=== PATIENT | female | born 2000 | race Caucasian/White ===

== ENCOUNTER → 2019-08-19 10:46 | Outpatient (CLI) | payer OTHER, SELFPAY ==
[2019-08-19 15:55] LABS: Chlamydia Trachomatis by PCR Negative (Negative); Neisserai gonorrhoeae by PCR Negative (Negative); Probe Check PASS; Sample Adequacy Control PASS; Specimen Processing Control PASS
== END ==
PROVIDERS: Referring Provider Obstetrics & Gynecology; Visit Provider Obstetrics & Gynecology
DX: Z11.3 Encounter for screening for infections with a predominantly sexual mode of transmission (principal)
CPT/HCPCS: 87491; 87591

== ENCOUNTER → 2019-08-24 11:05 | Outpatient (CLI) | payer OTHER, SELFPAY ==
[2019-08-24 13:55] LABS: Absolute Lymphocyte Count 1.24 X10^3/uL (0.83-4.51); Absolute Neutrophil Count 5.8 X10^3/uL (2.0-7.7); Basophil# 0.02 X10^3/uL; Basophil% 0.3 % (0-1); Eosinophil# 0.03 X10^3/uL; Eosinophils% 0.4 % (0-5); Hematocrit 43.6 % (37-47); Hemoglobin 14.7 g/dL (12.0-15.0); Lymphocyte # 1.24 X10^3/ul (4.0); Mean Corp Hgb Conc 33.7 g/dL (32-36); Mean Corpuscular Hgb 29.8 pg (27.0-32.0); Mean Corpuscular Volume 88.4 fL (81-99); Monocyte# 0.63 X10^3/uL; Monocyte% 8.1 % (0-10); NRBC Flagged by Analyzer 0 % (0-5); Neutrophil # 5.79 X10^3/uL (2.7-7.7); Neutrophil % 74.8 % (47-70); Platelet Count 178 K/mm3 (150-450); RBC Distribution Width CV 12.6 % (11.6-14.6); Red Blood Count 4.93 M/mm3 (4.2-5.4); White Blood Count 7.7 K/mm3 (4.4-11.0)
[2019-08-24 14:07] LABS: Color, Urine Yellow (Yellow); Glucose, Dipstick Normal (Normal); Ketone-Dipstick 5 mg/dl (Negative); Leukocyte Esterase-Dipstick 500 /ul (Negative); Nitrite-Dipstick Negative (Negative); Occult Blood-Urine 10 /ul (Negative); Protein-Dipstick 15 mg/dl (Negative); Urine Bilirubin Dipstick Negative (Negative); Urine Clarity Cloudy (Clear); Urine Urobilinogen Normal (Normal)
[2019-08-24 14:11] LABS: Amphetamine Urine VISTA NEGATIVE (<1000 ng/mL); Barbiturate Urine VISTA NEGATIVE (< 200 ng/mL); Benzodiazepine Urine VISTA NEGATIVE (< 200 ng/mL); Cocaine Urine VISTA NEGATIVE (< 300 ng/mL); Ecstacy Urine VISTA NEGATIVE (< 500 ng/mL); Methadone Urine VISTA NEGATIVE (< 300 ng/mL); PCP Urine VISTA NEGATIVE (< 25 ng/mL); THC Urine VISTA NEGATIVE (< 50 ng/mL); Vista UDS pH Range 6
[2019-08-24 14:13] LABS: Thyroid Stim Hormone (TSH) 2.13 uIU/mL (0.358-3.74)
[2019-08-24 14:57] LABS: HIV - WCH Non-Reactive (Nonreactive); Hepatitis B Surface Antigen Non-Reactive (Nonreactive); Hepatitis C Antibody Non-Reactive (Nonreactive); Rubella IgG 88.8 IU/mL; Vitamin D,25 Hydroxy 18.7 ng/mL (29.95-100.01)
[2019-08-27 01:54] LABS: Prenatal RPR NONREACTIVE (NONREACTIVE)
== END ==
PROVIDERS: Visit Provider Obstetrics & Gynecology
DX: Z34.81 Encounter for supervision of other normal pregnancy, first trimester (principal)
CPT/HCPCS: 36415; 80307; 81002; 82306; 84443; 85025; 86703; 86762; 86803; 87340

== ENCOUNTER → 2020-02-15 | Outpatient (CLI) | payer OTHER, SELFPAY | END | disposition home or self-care (01) | LOC: LABSPEC 14:03 | PROVIDERS: Referring Provider Obstetrics & Gynecology; Visit Provider Obstetrics & Gynecology | DX: Z36.85 Encounter for antenatal screening for Streptococcus B (principal) | CPT/HCPCS: 87077; 87081; 87186 ==

== ENCOUNTER 2020-03-15 07:03 | Inpatient (IN) | payer OTHER, SELFPAY ==
[2020-03-15] VITALS (43 sets, daily range): BP systolic 74–134; BP diastolic 36–91; PULSE 78–110; RESP 20; TEMP 36.6–37.7; O2SAT 92–100; BMI 32.8
--- NOTE | 2020-03-15 07:22 | HP.PCM_ITS ---
History and Physical Date of Admission: 03/15/20 [facility] ANTEPARTUM RECORD - HISTORY AND PHYSICAL (03/15/2020) Name: ODILON WALLACE History of This : This is a 20-year-old 1 para 0 who presents for induction for -induced hypertension and postdatism. care has otherwise been uneventful. OB Physician: IRVIN [place]'s Physician: UNDECIDED ...................................................................... : 2000 Age: 20 Address: [address] [place] [address] Phone: (h) [phone] ([phone] Insurance Carrier: [employer] [id number] Emergency Contact: IRINEO WALLACE [phone] ...................................................................... Final LINDA: 03/10/20 By Ultrasound: PARITY: (G-Total Pregnancies P-Fullterm,Premature,Induced AB,Spont AB, Ectopics, Multiple,Living) LINDA CONFIRMATION: By LMP: 06/03/19 Final LINDA: 03/10/20 OB PROBLEM LIST: Please enc office Childbirth/ classes. ALLERGY TO SULFA Declines AFP and CF. Echogenic focus noted at 20 wk u/s; declines MFM referral; repeat u/s 24 weeks GBS+ 02/22/20 ALLERGIES: Sulfa (Sulfonamide Antibiotics) Hives and/or rash MEDICATIONS: 28 mg iron-800 mcg tablet One pill by mouth once a day pyridoxine (vitamin B6) 50 mg tablet One pill by mouth once a day prn SOCIAL HISTORY: Smoking - Never Alcohol Use - None Diet - caffeine < 2 drinks per day and Low dairy-doesn't drink any milk. Water intake- tries for 20+ oz daily. Lifestyle - moderate stress lifestyle and Exercise - Active at home. Employer - [employer] in the home Job Description - Illicit Drug Use - None Sexual Activity - Residence - rent home and Lives w Place of - [place] Hours Worked - 20 WK Spouse-Sig Other Name - Irineo Spouse-Sig Other Occupation - Construction Spouse-Sig Other Phone No - [phone] PRIOR DELIVERY HISTORY DEL DATE GEST LAB WT LB WT OZ TYPE ANES LABOR TX ANTEPARTUM FLOW CHART VISIT GE RTC FU F F NY U U DATE WK MD WKS HT PN HR M SS BP ED WT NY GL D EF ST __ ____ ___ __ __ ___ __ __ __ ___ __ __ __ ___ __ 28 Apr 40 JMW 6 37 V + + 134/90 sl 169 tr - 3 75 -2 Feb 39 JMW 1 38 V + + 128/78 sl 170 tr - S 14 Feb JMW 1 38 V + + 126/70 sl 169 tr - 2 50 -2 07 Feb 37 JMW 1 37 + + 132/70 sl 167 tr - 31 Jan 36 JMW 1 36 V + + 128/70 sl 166 tr - 1 50 -2 10 Jan JMW 2 33 + + 114/76 sl 160 tr - Dec JMW 2 31 + + 114/64 sl 161 tr - 04 Jan 14 JMW 3 28 + + 112/64 0 155 tr - 02 Dec 09 JMW 4 24 + + 122/90 0 146 - - 04 Nov 04 JMW 4 20 + + 128/70 0 135 tr - 05 Oct 01 JMW 4 15 + ? 116/58 0 131 tr - 08 Aug 27 ELB 4 - - U+ O 100/72 0 129 tr - ANTEPARTUM NOTE(S): Mar 14 2020: see progress note, induce for PIH Mar 07 2020: Ctxs-occas Feb 28 2020: Ctxs-mild, Good FM Feb 21 2020: Ctxs-mild, Good FM Feb 14 2020: GBS Today and LARC form signed Jan 24 2020: Doing Well Jan 11 2020: Doing Well Dec 21 2020: CBC,OGCT today,Feeling Well Nov 18 2020: see note, Glucola Given and US OK Oct 20 2019: Sono Today,Periodic Tachycardia Sep 21 2019: N/V Periodically, Questionable Quickening,Declines AFP,CF Aug 24 2019: NOB today, feeling well COMPREHENSIVE ANTEPARTUM NOTE(S): Mar 14 2020: Odilon presents for her PNV. She is reporting good FM. She has sl to 1+ pitting edema in her lower extremities. Pt sts she had a BRADFORD yesterday which is unusual for her. On 03/09 she noted some ctxs, and sts at one point in the afternoon she had an episode of feeling as tho she would pass out. Pt is open to discussing induction. Initial BP sitting Lt arm was elevated at 134/90, but repeat BP Lying Lt side is 100/52. JT Mar 14 2020: Odilon scheduled for Induction for 03/15/20 at 0700 and to call at 0500 to confirm. Questions answered and consents signed. Spoke with Cherie DIGGS JD RN Feb 22 2020: H taken to OB. tkg Nov 18 2019: Odilon is being seen for PNV. Pt complains of becoming lightheaded easily. Glucola given. AM Nov 18 2019: Odilon presents here today for Sono and PNV and reports having bright red vaginal discharge when wiping after using restroom yesterday. Denies intercourse and straining with bowel movement. Nothing since that one time. Sono clear today with no evidence of bleeding. Glucola/Instructions given today. Good FM. JUAN MANUEL Aug 24 2019: Dr Burroughs patient here for NOB sono, NOB nurse and PNV. FIrst . Cultures at last visit NEG and sono: gardner viable IUP noted. EB Aug 24 2019: Odilon is here for NOB nurse visit with LINDA 03-10-20 planning a vag del at [facility] preferably without an epidural, is unsure of ped care post discharge and does plan to breastfeed. 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 Her is Irineo who does construction. They were March 10, 2019 which is their LINDA. Odilon has an allergy to Sulfa causing hives, but no known allergies to food, latex or the environment. She's a lifetime non smoker, non drinker and denies street drug use. Her diet is fairly balanced except for milk and dairy intake w minimal caffeine and some water. Enc to increase water intake to as close to one gallon daily as poss. She is active w her home and babysitting job. Enc to walk daily 20 min although she feels she's too busy to do so. Genetic Screening form completed noting cousins w dev disability or autism. She declines CF and AFP. Warning signs in pg discussed as well as which OTC meds are ok to take, the importance of protein in her diet, wearing her seatbelt ALWAYS despite position in the vehicle and low on her abdomen. She states her was once in an accident without a seatbelt which saved his life by being thrown out of the car window. Advised this is the exception not the rule. Discussed baby has to be in a carseat, buckled securely and seatbelted into the vehicle. She agrees with this. She is aware how to reach the office after hours. US done today and labs drawn w Vit D level added. She's had chickenpox, they have no cats and she knows about litter box issues. They have a copy of What to Expect. OFFICE Childbirth and classes discussed and enc. Enc to call w any concerns. Visit took approx 50 min. Zakiya DIGGS Aug 20 2019: GC and chlamydia NEG. EB Aug 19 2019: Odilon presents here today for Missed Menses appointment. 19 y.o G 1 P 0 non-smoker with history of regular menses and LMP of 19 lasting her average of 5-6 days. UPT is positive today in our Office. Presents at 10 weeks 6 days with an approximate LINDA of 03-10-20. Denies spotting/bleeding thus far in . Currently taking an OTC Vitamin with Educational Materials given. Medication and Allergy lists up-dated. JUAN MANUEL Aug 19 2019: ok REVIEW OF SYSTEMS: GENERAL - Denies fever, or chills SKIN - Denies rash, new skin lesions, or change in moles EYES - Denies blurred vision, or change in visual acuity EARS - Denies ear pain, or difficulty hearing NOSE - Denies nasal congestion, discharge, or bleeding MOUTH - Denies sore throat, or difficulty swallowing NECK - Denies pain or swelling RESPIRATORY - Denies shortness of breath, cough, wheezing CARDIOVASCULAR - Denies palpitations, chest pain, orthopnea, PND, peripheral edema, syncope or claudication GASTROINTESTINAL - Denies nausea, vomiting, diarrhea, constipation, Denies a bdominal pain, melena and or bright red blood GENITOURINARY - Denies dysuria, frequency of urination, urgency, or hesitancy MUSCULOSKELETAL - Denies joint or muscle pain, or back pain NEUROLOGICAL - Denies localized numbness, weakness, or tingling PSYCHIATRIC - Denies depression, anxiety, substance abuse or suicide attempts ENDOCRINE - Denies heat or cold intolerance, weight loss or gain, increasing thirst HEMATO-IMMUNOLOGIC - Denies easy bruising, bleeding, oral ulcerations or recurrent infections GENETICS SCREENING: Age 35+ years: No Thalassemia: No Neural Tube Defect: No Down Syndrome: No JACOB-SACHS: No Sickle Cell Disease: No Hemophilia: No Musc. Dystrophy: No Cystic Fibrosis: No-declines screening [place] Chorea: No Mental Retardation: No Fragile X: No Other genetic: No Other defects: No SABs/still births: No Drugs since LMP: No INFECTION HISTORY: High risk AIDS: No High risk Hepatitis: No Exposed to TB: No Exposed to Herpes: No Rash/viral illness since LMP: No History of STD: No MENSTRUAL HISTORY: *Menses Amount/Duration: 5-6 DAYSMenses Regularity: RegularFrequency: monthlyMenarche (Age Onset): 10* PAST SUMMARY: PARITY: 1. Total Pregnancies............ 1 2. Full Term Pregnancies........ 0 3. Premature.................... 0 4. Abortions - Induced.......... 0 5. Abortions - Spontaneous...... 0 6. Ectopics..................... 0 7. Multiple Births.............. 0 8. Living Children.............. 0 PHYSICAL EXAMINATION General Appearence: 20 yo female in no acute distress Vital Signs: AF, VSS Heart: RRR without rubs or gallops Lungs: CTA x 2 Breasts: deferred Abdomen: gravid Pelvis: Cervix: 3+/75 Presentation: cephalic Station: -2 Fetus: Size: AGA Movement: present Heart: present Labs for : ODILON WALLACE since 06/14/2019 ORDER DATEIN DESCRIPTION VALUE UNITS RANGE A+ COMMENT CULTURE, GROUP B STREPTOCOCCUS 02/15/20 NOTE Original Ordering Provider: Koffi Burroughs Comments: VAGINAL/RECTAL SADAF Culture ORGANISM 1: Streptococcus agalactiae (B) Amount Growth 2+ Streptococcus agalactiae (B): REACTION Ampicillin $ <=0.25 S Benzylpenicillin NF <=0.06 S Ceftriaxone $ <=0.12 S Clindamycin $$ >=1 R Inducable Clindamycin Resistan NEG Linezolid $$$$ <=2 S Vancomycin $ 0.5 S Reference Range: S= Susceptible, I= Intermediate, R= Resistant MICS are expressed in micrograms per mL (NF) indicates non-formulary drug at [facility]. Approval by Infectious Disease Specialist required before non-formulary drugs may be ordered and/or dispensed. Testing performed on [employer] 2 instrument c Reviewed by ABIGAIL CBC + DIFF 12/21/19 NOTE Original Ordering Provider: KOFFI BURROUGHS CBC + DIFF CBC-COMPLETE BLOOD COUNT WBC 10.4 x 10EE3/UL 4.5 - 10.8 RBC 3.33 x 10EE6/UL 4.10 - 5.30 L HEMOGLOBIN 10.8 g/dl 12.0 - 16.0 L HEMATOCRIT 31.2 % 34.0 - 46.0 L MCV 94 fl 80 - 99 MCH 33 pg 27 - 33 MCHC 35 X10 3 32 - 36 RDW/CV 13.7 % 12.0 - 15.6 PLATELET 148 x10EE3/UL 150 - 450 L MPV 10.6 fl 6.6 - 10.5 H AUTOMATED DIFFERENTIAL NEUT % 80.8 % 46.0 - 76.0 H LYMPH % 11.5 % 20.0 - 45.0 L MONOS % 7.1 % 0.0 - 10.0 EO % 0.3 % 0.0 - 7.0 BASO % 0.3 % 0.0 - 2.0 LYMPH # 1.20 x10EE3/UL 0.80 - 2.80 NEUT # 8.40 x10EE3/UL 1.50 - 7.10 H MONO # 0.70 x10EE3/UL 0.20 - 1.00 EO # 0.00 x10EE3/UL 0.00 - 0.50 BASO # 0.00 x10EE3/UL 0.00 - 0.10 MANUAL DIFF SEE BELOW BANDS 3 % 0 - 5 SEGS 80 % 50 - 70 H LYMPH 9 % 20 - 40w L MONOS 6 % 0 - 8 META 1 % 0 - 1 MYELO 1 % CELL COUNT 100 MORPHOLOGY NORMAL Reviewed by KOFFI GLUCOSE CHALLENGE 50GM 1 HOUR 12/21/19 NOTE Original Ordering Provider: KOFFI BURROUGHS GLUCOSE CHALLENGE 50GM 1 HOUR GLUCOSE CHALLENGE 50 GMS 1 HOUR GLUCOSE 1HR 123 mg/dl 70 - 140 Reviewed by KOFFI RPR 08/24/19 NOTE Original Ordering Provider: Anel Mejia RPR NONREACTIVE NONREACTIVE Reviewed by ANEL HEPATITIS C ANTIBODY 08/24/19 NOTE Original Ordering Provider: Anel Mejia HEPATITIS C AB Non-Reactive Nonreactive Non Reactive: < 0.8 Equivocal: >/= 0.8 to < 1.0 Reactive: >/= 1.0 The CDC recommends that a reactive/equivocal HCV antibody result be followed up by the HCV Nucleic Acid Amplification test ([id number]) Reviewed by KOFFI HEPATITIS B SURFACE ANTIGEN 08/24/19 NOTE Original Ordering Provider: Anel Mejia HEPB SURFACE AG Non-Reactive Nonreactive Reviewed by KOFFI RUBELLA IGG 08/24/19 NOTE Original Ordering Provider: Anel Mejia RUBELLA IGG 88.8 IU/mL Antibody results Interpretation of Immune Status < 5 IU/ml Presumed Non-immune 5 - < 10 IU/ml Equivocal > or = 10 IU/ml Presumed Immune HIV - [facility] 08/24/19 NOTE Original Ordering Provider: Anel Mejia HIV - [facility] Non-Reactive Nonreactive Reviewed by KOFFI VITAMIN D,25 HYDROXY 08/24/19 NOTE Original Ordering Provider: Anel Mejia VITAMIN D 25-OH 18.7 ng/mL 29.95-100.01 L Vitamin D 25(OH) Status Range Deficiency <20 ng/mL (50nmol/L) Insufficiency 20 - 30 ng/mL (50 - 75 nmol/L) Sufficiency 30 - 100 ng/mL (75 - 250 nmol/L) Toxicity >100 ng/mL (>250 nmol/L) Reviewed by KOFFI CHRISTOPHER T AND S-NO CHARGE W/PNP 08/24/19 Reason for Type AND Screen/Red Cells: Surgery? N [facility]~[address] [place], [address]~ BLOOD TYPE GEL A POSITIVE N AB SCREEN GEL NEGATIVE N Reviewed by KOFFI THYROID STIM HORMONE (TSH) 08/24/19 NOTE Original Ordering Provider: Anel Mejia TSH 2.13 uIU/mL 0.358-3.74 Reviewed by KOFFI marvin URINE DRUG SCREEN (VISTA) 08/24/19 NOTE Original Ordering Provider: Anel Mejia TO BE CONFIRMED CONFIRMATORY TESTING FOR ALL POSITIVE URINE DRUG SCREEN RESULTS WILL ONLY BE SENT OUT UPON PHYSICIAN ORDER. VISTA Urine Drug Screen methods provide only preliminary analytical test results. A more specific alternate chemical method must be used in order to obtain a confirmed analytical result. Gas chromatography/mass spectrometery (GC/MS) is the preferred confirmatory method. Clinical consideration and professional judgement should be applied to any drug of abuse test result, particularly when preliminary positive results are used. URINE TCA TESTING MUST BE ORDERED SEPARATELY. USE TEST MNEMONIC: [facility] UDS PH 6 AMPHETAMINES NEGATIVE <1000 ng/mL BARBITIURATES NEGATIVE < 200 ng/mL w BENZODIAZIPINE NEGATIVE < 200 ng/mL COCAINE NEGATIVE < 300 ng/mL ECSTACY NEGATIVE < 500 ng/mL METHADONE NEGATIVE < 300 ng/mL OPIATES NEGATIVE < 300 ng/mL PCP NEGATIVE < 25 ng/mL THC NEGATIVE < 50 ng/mL Reviewed by KOFFI URINALYSIS, ROUTINE (DIPSTICK) 08/24/19 NOTE Original Ordering Provider: Anel Mejia COLOR Yellow Yellow CLARITY Cloudy Clear GLUCOSE, UR Normal mg/dl Normal BILIRUBIN URINE Negative mg/dL Negative KETONE UR 5 mg/dl Negative H SP.GR. DIPSTX 1.020 1.002-1.030 PH UR 6.0 5.0 - 8.0 PROT DIPSTXr 15 mg/dl Negative H UROBILI Normal mg/dl Normal NITRITE UR Negative Negative OCCULT BLOOD-UR 10 /ul Negative H LEUK ESTERASE 500 /ul Negative H Reviewed by KOFFI CBC W/DIFF, AUTOMATED 08/24/19 NOTE Original Ordering Provider: Anel Mejia WBC 7.7 K/mm3 4.4-11.0 RBC 4.93 M/mm3 4.2-5.4 HGB 14.7w g/dL 12.0-15.0 HCT 43.6 % 37-47 MCV 88.4 fL 81-99 MCH 29.8 pg 27.0-32.0 MCHC 33.7 g/dL 32-36 RDW CV 12.6 % 11.6-14.6 RDW SD 41.0 fl 35.1-43.9 PLT 178 K/mm3 150-450 MPV 12.0 fl 6.2-12.0 NEUT% 74.8 % 47-70 H LY% 16.0 % 19-41 L MONO% 8.1 % 0-10 EO% 0.4 % 0-5 BASO% 0.3 % 0-1 IM GRAN % 0.400 % 0.0-0.9 IG% - Immature Granulocytes (promyelocytes, myelocytes and metamyelocytes) > 1% indicates that a LEFT SHIFT is Present. ABSOLUTE NEUT 5.8 X10 3/uL 2.0-7.7 ABSOLUTE LYMPH 1.24 X10 3/uL 0.83-4.51 NRBC, FLAGGED 0 % 0-5 Reviewed by KOFFI TANG/ZONIA [facility] BY PCR 08/19/19 NOTE Original Ordering Provider: Koffi PORTILLO TRAC PCR Negative Negative ZONIA BY PCR Negative Negative Reviewed by ANEL Impression /Plan: 40+6 week intrauterine . Plan rupture of membranes and Pitocin as needed. Preparations in progress for delivery. Essential Procedure Criteria Procedure Essential: Yes Criteria Note: On 02/01/2020 the [place] Department of Health ([facility]) Public Order signed by [facility] Director Melissa Zuleta M.D., regarding the Management of Non-E ssential Surgeries and Procedures for the purpose of preserving Personal Protective Equipment (PPE) and critical hospital capacity and resources within [place] went into effect as of 02/02/2020 at 5:00PM. According to the [facility] Public Order: This action will remain in full force and effect until the State of Emergency declared by the Governor no longer exists or the Director of the [facility] rescinds or modifies this Order.. This [facility] order stated all non-essential or elective surgeries and procedures that utilize PPE should be delayed unless there is undue risk to the current or future health of a patient. After reviewing the aforementioned [facility] Public Order and the patients clinical case, I have determined that the scheduled procedure meets the criteria to go forward. Risk to Patient if Procedure Delayed: Risk of rapidly worsening to severe symptoms if delayed
[2020-03-15] MEDS: Lactated Ringers 1,000 ML 50 ML IV (07:45)
[2020-03-15 08:10] LABS: Absolute Lymphocyte Count 1.33 X10^3/uL (0.83-4.51); Absolute Neutrophil Count 9.5 X10^3/uL (2.0-7.7); Basophil# 0.04 X10^3/uL; Basophil% 0.3 % (0-1); Eosinophil# 0.06 X10^3/uL; Eosinophils% 0.5 % (0-5); Hematocrit 34.9 % (37-47); Lymphocyte # 1.33 X10^3/ul (4.0); Lymphocyte % 11.1 % (19-41); Mean Corp Hgb Conc 34.4 g/dL (32-36); Mean Corpuscular Hgb 31.9 pg (27.0-32.0); Mean Corpuscular Volume 92.8 fL (81-99); Mean Platelet Vol. 12.6 fl (6.2-12.0); Monocyte# 0.78 X10^3/uL; Monocyte% 6.5 % (0-10); NRBC Flagged by Analyzer 0 % (0-5); Neutrophil # 9.52 X10^3/uL (2.7-7.7); Neutrophil % 79.6 % (47-70); POSITIVE COUNT YES; Platelet Count 126 K/mm3 (150-450); RBC Distribution Width CV 13.9 % (11.6-14.6); Red Blood Count 3.76 M/mm3 (4.2-5.4)
[2020-03-15] MEDS: Oxytocin 30 units/NS 500 ml 30 UNITS/500 ML IV.SOLN IV (08:14)
[2020-03-15 08:53] LABS: Differential Indicated SCAN CRITERIA MET
[2020-03-15 08:58] LABS: Platelet Estimate ADEQUATE (ADEQ); Red Cell Morphology NORM C+C NORMAL (NORM C&C)
[2020-03-15] MEDS: Lactated Ringers 500 ML 999 ML IV ×2 (08:58→12:35)
[2020-03-15] MEDS: fentaNYL-bupivacaine (epidural) 100 ML BAG EPIDURAL (09:36)
--- NOTE | 2020-03-15 12:54 | PCM.PN.BLA ---
Progress Note S: States very comfortable and no pain with epidural O: VSS NST FHR baseline 140, 10x10 accels, variable decels, moderate variability at times, minimal variability UC 2-4m SVE6/75/-2 per RN A: NST Category II Active labor Pain well controlled P: IV fluid bolus and position changes recommended for FHR To continue to monitor Expect STROKE Vital Signs/Narrative: Vital Signs Temp Pulse BP Pulse Ox 03/15/20 12:23 78 108/64 03/15/20 12:22 78 74/39 L 03/15/20 12:21 90 92/36 L 03/15/20 11:32 97.9 F 95 103/59 L 99 03/15/20 10:37 104 H 99 03/15/20 10:36 98.5 F 104 H 104/58 L 03/15/20 09:56 104 H 112/62 03/15/20 09:55 100 03/15/20 09:51 102 H 109/57 L 03/15/20 09:50 99 03/15/20 09:47 109 H 118/73 03/15/20 09:45 110 H 99 03/15/20 09:41 100 112/56 L 03/15/20 09:40 102 H 99 03/15/20 09:36 100 119/59 L 03/15/20 09:35 101 H 92 03/15/20 09:31 101 H 132/80 H 03/15/20 09:30 98 03/15/20 09:26 105 H 134/83 H 03/15/20 09:09 98.3 F 102 H 134/91 H
[2020-03-15] MEDS: Oxytocin 30 units/NS 500 ml 30 UNITS/500 ML IV.SOLN 334 UNITS IV (15:00)
--- NOTE | 2020-03-15 15:18 | OP.PCM_ITS ---
<Vijaya Riggs - Last Filed: 03/15/20 17:40> Vaginal Delivery Maternal Presentation: Medically Indicated Induction Method of Induction: Amniotomy Medical Reason for Induction: Gestational Hypertension Amniotic Membrane Rupture Type: Artificial Amniotic Fluid Description: Moderate meconium Final LINDA: 03/10/20 Final LINDA Source: US <20 weeks Gestational age: 40 Weeks and 5 Days [place] doctor who attended delivery (if requested by OB): Criss Harman Date of Procedure: 03/15/20 Pre-Operative Diagnosis: IOL, Gestational HTN, 40+ weeks gestation Post-Operative Diagnosis: S/P NVD, 3rd degree laceration Surgery/ Procedure Performed: Spontaneous Vaginal Delivery Anesthesiologist: Pilar Castillo Type of Anesthesia: Epidural Description of Procedure: Patient had spontaneous urge to push with pressure and complete +2. With CNM perineal support given, patient pushed to deliver head over tight perineum in OA to AIRAM with body delivered immediately following head. The female infant was placed on the maternal abdomen and further attended by nursery personnel with bulb suction and stimulation. The cord was doubly clamped then cut by RN with CNM supervision at approximately 3 minutes of life. IV Pitocin started per protocol. Third degree perineal/vaginal extension laceration noted. Dr. Rolly Villa called for repair. With gentle cord traction spontaneous delivery of placenta. Fundal massage given, firm and midline. On inspection placenta appeared to be fully intact with a three vessel cord. Pressure held to laceration to control bleeding. Dr. Crum arrived and assessed laceration and continued with repair. EBL 500. Sponge and needle count correct x2. Apgars 8/9. Presentation: Vertex, AIRAM Placental Delivery Description: Spontaneous Placenta Disposition: [facility] Cord Vessel Description: 3 Vessels Cord Entanglement: None Drain: Ramirez to straight drain Estimated Blood Loss: 500 A gender: Female (1 minute): 8 (5 minute): 9 Episiotomy Description: None Laceration: 3rd degree Medications given after delivery: IV Pitocin <Lilian Crum - Last Filed: 03/16/20 11:18> Vaginal Delivery Description of Procedure: Addendum for 03/15/20 approximately 1700. Arrived to bedside, vulva, perineum inspected and rectal exam performed. Patient with 3rd degree perineal laceration with left sulcal laceration and right vaginal extension into the right labia. The external anal sphincter fibers were isolated and reapproximated in a clock face pattern using 3-0 chromic simple stitches. The sulcal laceration and remaining second degree laceration was repaired with 3-0 Vicryl rapide. The right labial laceration was also repaired with 3-0 Vicryl Rapide. There was excellent hemostasis and patient tolerated repair well with epidural analgesia. Sponge and needle counts were correct x 2. EBL 500ml between delivery and repair.
[2020-03-15] MEDS: Ibuprofen 600 MG Tablet PO (22:07)
[2020-03-16] VITALS (10 sets, daily range): BP systolic 120–133; BP diastolic 67–89; PULSE 84–121; RESP 18–20; TEMP 36.3–36.8; O2SAT 79–98
[2020-03-16] MEDS: Ibuprofen 600 MG Tablet PO ×2 (04:18→11:46)
--- NOTE | 2020-03-16 09:18 | PCM.PN.OB ---
Subjective: Doing well and would like to leave today. Denies heavy bleeding or pain. Taking Motrin, ice packs and controlling her pain well. Objective: VSS. Vaginal edema +1, better than yesterday. Fundus firm, midline, u/1. well. Lochia rubra moderate - Physical Exam Vitals/I&O's: Vital Signs Temp Pulse Resp BP Pulse Ox 97.8 F 111 H 20 H 129/67 H 98 03/16/20 03:06 03/16/20 03:06 03/16/20 03:06 03/16/20 03:06 03/15/20 16:17 Weight: 76.204 kg Body Mass Index (BMI) 32.8 Intake and Output for Last 24 Hours 03/14/20 03/15/20 03/16/20 23:59 23:59 23:59 Intake Total 2849.67 / 2849.67 Output Total 1600 / 1600 600 / 600 Balance 1249.67 / 1249.67 -600 / -600 General: Alert, Oriented x3, Cooperative HEENT: Atraumatic, PERRLA, EOMI, Normocephalic Neck: Supple, No JVD, Negative Carotid Bruits Lungs: Clear to auscultation, Normal air movement Cardiovascular: Regular rate, No murmurs Abdomen: Bowel Sounds Present, Soft, Non Tender, - - fundus u/1 Extremities: No edema, Capillary Refill Less than 3 Seconds Skin: No rashes, No breakdown Musculoskeletal: No Tenderness to Palpation of Joints or Extremities Neurological: Cranial nerves II-XII grossly intact Psych/Mental Status: Normal Affect, Appropriate Laboratory Results 03/15/20 07:45: Blood Type A POSITIVE, Antibody Screen NEGATIVE Current Medications Acetaminophen (Tylenol) 1,000 mg PO Q8H PRN PRN PRN Reason: Pain Score 1-3/10 Bisacodyl (Dulcolax) 10 mg RECTAL UD PRN PRN Reason: If no BM Hydrocortisone (Hytone) 1 applic TOPICAL TID PRN PRN; Protocol PRN Reason: Discomfort Ibuprofen (Motrin) 600 mg PO Q6H PRN PRN PRN Reason: Pain Score 1-3/10 Last Admin: 03/16/20 04:18 Dose: 600 mg Documented by: Methylergonovine Maleate (Methergine) 0.2 mg IM X1 PRN PRN Reason: Excess bleeding/uterine atony Ondansetron HCl (Zofran) 4 mg IV Q4H PRN PRN PRN Reason: Nausea Oxycodone HCl (Oxyir) 5 - 10 mg PO Q4H PRN PRN PRN Reason: Pain Score 4-10/10 Senna/Docusate Sodium (Senokot-S, Aida-Colace) 1 - 2 tablet PO DAILY PRN PRN PRN Reason: Constipation Simethicone (Mylicon) 80 mg PO PCHS PRN PRN Reason: Indigestion/Stomach pain Sodium Chloride () 5 - 15 ml IV UD PRN PRN Reason: SALINE FLUSH Throat Lozenges (Dermoplast (Sp)) 1 applic TOPICAL 4X/DAY PRN PRN; Protocol PRN Reason: Pain/Inflammation Last Admin: 03/15/20 22:07 Dose: 1 applic Documented by: Medical Necessity - Tobacco Use Smoking Status: Never smoker Assessment/Plan A/P: Post vaginal delivery day 1 3rd degree laceration well approximated with mild vaginal edema Normal involution and rubra Educated on ice packs, Motrin Q6H at home and support available Wishes to discharge today after 24H
--- NOTE | 2020-03-16 17:17 | DCINST_ITS ---
Discharge Diet: No Restrictions Discharge Activity: Return to Normal Activity, May not drive while taking narcotic pain medications., May Shower May resume sexual activity in: 4-6 weeks Additional Activity Instructions:: Nothing in the vagina for 4-6 weeks. You may return to work/school in 6 weeks. Call your doctor if your incision/area has: Continuous Slow Oozing, Sudden Increased Bleeding, Increased Pain/ Swelling, Increased Redness, Foul Smelling Discharge Additional Instructions: If you experience any of the following, contact your healthcare provider. * Bleeding that soaks a pad every hour for 2 hours * Fever 100.4 or higher * Unrelieved incision or abdominal pain * Swelling, redness, discharge or bleeding from your incision or episiotomy site * Your incision begins to separate * Problems urinating (including inability to urinate or burning while urinating). * Visual changes * Severe headache * Flu-like symptoms * Pain or redness in one of both of your breasts * Pain, warmth, tenderness or swelling in your legs, especially the calf area * Frequent nausea and vomiting * Symptoms of depression or anxiety If you experience any of the following, call 911 or go to the nearest Emergency Room. * Chest pain * Problems breathing * Seizure activity * Partial or complete paralysis of a body part, slurred speech, weakness or drooping of the face, or a sudden inability to walk or hold your balance Allergies/Adverse Reactions: Allergies Sulfa (Sulfonamide Antibiotics) Adverse Reaction (Verified 03/15/20 07:31) Rash Medications to take at Discharge Iron 1 tab PO DAILY 03/15/20 Caplet 1 tab PO DAILY 03/15/20 Vitamin B-6 1 tab PO DAILY 03/15/20 Please Follow Up With: Alcides Freedman MD When: Call to make an appointment with your doctor in 6 weeks. Test Results: Test results from this visit will be discussed in further detail at your follow- up appointment, if applicable.
== END 2020-03-16 18:20 | disposition home or self-care (01) | DRG 768 ==
PROVIDERS: Admitting Provider Obstetrics & Gynecology; Visit Provider Obstetrics & Gynecology
DX: O48.0 Post-term pregnancy (principal); Z37.0 Single live birth; O70.20 Third degree perineal laceration during delivery, unspecified; O13.4 Gestational [pregnancy-induced] hypertension without significant proteinuria, complicating childbirth; Z3A.40 40 weeks gestation of pregnancy; O76 Abnormality in fetal heart rate and rhythm complicating labor and delivery; O77.0 Labor and delivery complicated by meconium in amniotic fluid
CPT/HCPCS: 59025; 59050; 85025; 86850; 86900; 86901; 99218; J7120; G0378